=== PATIENT | female | born 1935 | race Two or more races ===

== ENCOUNTER 2020-05-14 06:46 | Day surgery (SDC) | payer OTHER | END 2020-05-14 11:15 | disposition home or self-care (01) | LOC: AMB-ENDOS 06:46 → ADM 06:46 → AMB-ENDOS 11:15 → ADM 13:45 | PROVIDERS: ATTEND Surgery | DX: D12.0 Benign neoplasm of cecum (principal); Z20.822 Contact with and (suspected) exposure to COVID-19 ==